=== PATIENT | female | born 1995 | race Caucasian/White ===

== ENCOUNTER → 2025-03-03 | Outpatient (CLI) | payer BC, SELFPAY ==
[2025-03-03 13:44] LABS: HCG Qualitative,Urine Negative
--- NOTE | 2025-03-03 15:30 | XR_ITS ---
Examination: CT abdomen, without intravenous contrast. CT abdomen, with intravenous contrast. Sagittal and coronal 2-D reconstructions. Time of exam:March 03, 2025 1540 hours INDICATIONS: Elevated androgen on laboratory examination, diagnosis PCOS CTDI: vol (mGy) 31.3 DLP: (mGycm) 1182 Technique: Multiple 3.0 mm axial noncontrast images of the abdomen have been obtained. Multiple 3.0 mm axial images post administration 60 cc Isovue-370 intravenous contrast have been obtained. Sagittal and coronal 3-D reconstructions have been obtained. Low dose protocols were performed. One or more of the following dose reduction techniques were used; automated exposure control, adjustment of the mA and/or KV according to patient size, use of iterative reconstruction technique. Findings: Severe diffuse fatty infiltration throughout the liver, hepatomegaly 23 cm No focal liver lesions No gallstones No pancreatic or adrenal mass. No renal or ureteral calculi, no hydronephrosis Aorta normal size No bowel obstruction. Normal appendix IMPRESSION: Significant hepatomegaly with diffuse fatty infiltration throughout the liver
== END | disposition home or self-care (01) ==
PROVIDERS: Referring Provider Student in an Organized Health Care Education/Training Program; Visit Provider Student in an Organized Health Care Education/Training Program
DX: K76.0 Fatty (change of) liver, not elsewhere classified (principal); Z32.00 Encounter for pregnancy test, result unknown
CPT/HCPCS: 74170; 81025; A4649; Q9967

== ENCOUNTER → 2025-08-17 | Outpatient (CLI) | payer BC, SELFPAY ==
[2025-08-17 08:38] LABS: HCG Qualitative,Urine Negative
--- NOTE | 2025-08-17 10:00 | XR_ITS ---
Examination: CT abdomen, without intravenous contrast. CT abdomen, with intravenous contrast. Sagittal and coronal 2-D reconstructions. Time of exam: August 17, 2025, 1149 hours, comparison March 03, 2025 INDICATIONS: Diagnosis neoplasm of the adrenal gland CTDI: vol (mGy) 32.5 DLP: (mGycm) 1259 Technique: Multiple 3.0 mm axial noncontrast images of the abdomen have been obtained. Multiple 3.0 mm axial images post administration 60 cc Isovue-300 intravenous contrast have been obtained. Sagittal and coronal 3-D reconstructions have been obtained. Low dose protocols were performed. One or more of the following dose reduction techniques were used; automated exposure control, adjustment of the mA and/or KV according to patient size, use of iterative reconstruction technique. Findings: Severe diffuse fatty infiltration throughout the liver Hepatomegaly 21 cm Spleen is not enlarged 4 mm splenic cyst No gallstones No adrenal masses noted No hydronephrosis renal or ureteral calculi Aorta normal size No bowel obstruction Normal appendix No diverticulitis IMPRESSION: Moderate hepatomegaly, severe diffuse fatty infiltration throughout the liver No adrenal mass
== END | disposition home or self-care (01) ==
LOC: SCAT 08-18 07:50
PROVIDERS: Referring Provider Student in an Organized Health Care Education/Training Program; Visit Provider Student in an Organized Health Care Education/Training Program
DX: K76.0 Fatty (change of) liver, not elsewhere classified (principal); Z32.00 Encounter for pregnancy test, result unknown
CPT/HCPCS: 74170; 81025; A4649; Q9967

== ENCOUNTER 2025-08-28 21:35 | Emergency (ER) | payer BC, SELFPAY ==
[2025-08-28 21:37] VITALS: BMI 38.9
[2025-08-28 21:59] VITALS: BP 144/98; PULSE 89; RESP 20; TEMP 36.8; O2SAT 98
--- NOTE | 2025-08-28 22:29 | EDNOTE_ITS ---
ED General RME/HPI General Chief complaint: General Adult/Misc Complain Stated complaint: RIGHT EAR PAIN,SORE THROAT Time Seen by Provider: 08/28/25 21:42 Source: patient Arrival date/time: 08/28/25 21:35 Mode of arrival: ambulatory Limitations: no limitations RME / HPI RME / HPI narrative: This patient is a pleasant but severely morbidly obese 30-year-old female who arrives to the ED today with complaints of nasal congestion, severe sore throat and ear pain for the past 2 days. Patient states the symptoms came on and been relatively unrelenting. Patient states she feels warm but she does not think she has had a fever. Patient was mildly hypertensive at arrival. Related Data Home Medications ?Medication ?Instructions ?Recorded ?Confirmed Ibuprofen * (MOTRIN *) 400 mg PO Q6HR PRN PAIN #0 t abs 05/28/14 ofloxacin 0.3 % ear drops 10 drp RIGHT EAR QDAY RIGHT EAR 05/28/14 INFECTION ##0 Previous Rx's ?Medication ?Instructions ?Recorded cetirizine 10 mg tablet (24Hour 10 mg PO QDAY PRN renae rgy symptoms 08/28/25 Allergy) 7 days #7 tabs ibuprofen 800 mg tablet (IBU) 800 mg PO Q8H PRN pain # 14 tabs 08/28/25 Allergies Allergy/AdvReac Type Severity Reaction Status Date / Time dexamethasone (From Decadron) Allergy Verified 08/28/25 21:36 Review of Systems Review of Systems Systems Reviewed: All systems reviewed, normal except as documented Past Medical History Social History SMOKING STATUS: Never smoker ED Exam General Limitations: Present no limitations General appearance: Present alert and in no apparent distress Head Head exam: Present atraumatic Eye Eye exam: Present normal appearance, PERRL and EOMI ENT ENT exam: Present other (Patient displays a beefy oropharynx with bilateral tonsillar pillar involvement. No uvular deviation. Exudate appreciated throughout. Airway is patent.) Neck Neck exam: Present normal inspection, full ROM and trachea midline Chest Chest inspection: Present normal inspection and symmetric chest wall rise Respiratory Respiratory exam: Present normal lung sounds bilaterally Cardiovascular Cardiovascular exam: Present regular rate, normal rhythm and normal heart sounds Abdominal Exam Abdominal exam: Present soft and normal bowel sounds Extremities Exam Extremities exam: Present normal inspection and full ROM Back Exam Back exam: Present normal inspection and full ROM Neurological Exam Neurological exam: Present alert, oriented X3 and CN II-XII intact Psychiatric Psychiatric exam: Present normal affect and normal mood Skin Skin exam: Present warm, dry, intact and normal color Course Quality Measures none Orders Category Date Time Status PEN G BRET (Bicillin LA) [Bicillin La Inj] Med 08/28/25 22:28 Once 1,200,000 unit IM X1 ONE As noted above Vital Signs Vital signs: Vital Signs Temperature 98.2 F 08/28/25 21:59 Pulse Rate 89 08/28/25 21:59 Respiratory Rate 20 08/28/25 21:59 Blood Pressure 144/98 H 08/28/25 21:59 Pulse Oximetry (%) 98 08/28/25 21:59 Oxygen Delivery Method Room Air 08/28/25 21:59 As noted above Discharge Plan Plan Patient Disposition: HOME (Self Care) Prescriptions/Referrals Prescriptions/Med Rec: New cetirizine [24Hour Allergy] 10 mg tablet 10 mg PO QDAY PRN (Reason: allergy symptoms) 7 Days Qty: 7 0RF ibuprofen [IBU] 800 mg tablet 800 mg PO Q8H PRN (Reason: pain) Qty: 14 0RF No Action ofloxacin 5 ML drops 10 drp RIGHT EAR QDAY Qty: 0 Ibuprofen * (MOTRIN *) 400 MG tablet 400 mg PO Q6HR PRN (Reason: PAIN) Qty: 0 Problem List Clinical Impression: Strep throat Patient/Caregiver Discharge Instructions Education Materials: ED Pharyngitis, Strep (Presumed) Additional Instructions: Advised additional medication as needed. Good hydration and healthy nutrition throughout. Print Language: Turkish Stand Alone Forms: [employer] Award Info., Patient Portal Info Letter MDM Narrative MDM hospital course (for use when minimal MDM required): This patient presents with textbook strep throat. Patient was given a dose of Bicillin prior to discharge. Patient to be sent home with some supplemental medication for the next day or 2. Clinical Information Provided by: patient Medical Records reviewed None Meds/Rx considered, not ordered None Labs/Rad/Tests considered, not ordered None Chronic Illness/Social Conditions which may negatively complicate care or outcome(s)-explain: None or not applicable Explain: None EKG EKG not done Labs Labs: none Lab(s) Interpretation(s): None Imaging Imaging interpretation: none Imaging Interpretation(s): None Medication Administration(s) Medication Administration History Penicillin G Benzathine (Pen G Bret (Bicillin La) 1,200,000 Unit/2 Ml Syringe) 1,200,000 unit IM X1 ONE Stop: 08/28/25 22:29 As noted above Diagnosis Differential Diagnosis ED Complaint MDM: Streptococcal pharyngitis
== END 2025-08-28 23:23 | disposition home or self-care (01) ==
LOC: SERX 22:57
PROVIDERS: Emergency Provider Physician Assistant
DX: J02.0 Streptococcal pharyngitis (principal)
CPT/HCPCS: 96372; 99282; J0561